=== PATIENT | male | born 1935 | race Caucasian/White ===

== ENCOUNTER → 2016-11-09 | Outpatient (CLI) | payer MEDICARE, BC ==
[~2016-11-09] MED LIST: ALTACE5 MG PO; ANDROGEL5 GM TOP; ASPIRIN LO-DOSE81 MG PO; BACTRIM DS1 TAB PO; CENTRUM ULTRA1 EACH PO; CRESTOR20 MG PO; DIURIL250 MG PO; FISH OIL1000 MG PO; FLEXI JOINT TA1 EAC1 PO; KRILL OIL 3001 EACH PO; NITROSTAT0.4 MG SL; TYLENOL EXTRA500 MG PO; TYLENOL/COD#31 TAB PO; VITAMIN D1000 UNIT PO; VITAMIN D400 UNIT PO; VITAMIN E400 UNI2 PO
== END | disposition disaster alternative care site (69) ==
LOC: GRAD 11:31
DX: N20.0 Calculus of kidney (principal)